=== PATIENT | female | born 1995 | race Caucasian/White ===

== ENCOUNTER 2016-11-18 13:19 | Emergency (ER) | payer OTHER ==
[~2016-11-18] VITALS: Wt 72.5 kg
[2016-11-18] MEDS ORDERED: SOD CHLORIDE 0.9% 1,000 ML IV STA (14:27)
[2016-11-18] MEDS ORDERED: FAMOTIDINE 20 MG INJ IV STA (14:27)
[2016-11-18] MEDS ORDERED: ONDANSETRON 4 MG INJ IV STA ×2 (14:27→15:48)
[2016-11-18] MEDS ORDERED: morphine 4 MG/ML VIAL IV STA ×2 (14:27→15:48)
--- NOTE | 2016-11-18 14:33 | ERD ---
ER Documentation Chief Complaint Date/Time DATE: 11/18/16 TIME: 14:29 Chief Complaint UPPER ABD PAIN SINCE TODAY. NO DYSURIA. NAUSEA NO VOMITING HPI 21 year old female with history of acute cholecystitis and cholecystectomy in 2013 presenting to the emergency department complaining of epigastric pain that radiates to her back since 11am this morning. Patient states pain was 6/10 but has increased to 9/10 2 hours ago. Patient complains of nausea and 1 episode of vomiting. Patient denies fever, diarrhea, dysuria. Patient states she has taken an Chaya medication called Sertal which is an NSAID, no relief. ROS All systems reviewed and are negative except as per history of present illness. Medications Home Meds Active Scripts Hydrocodone/Acetaminophen (Gilboa 5-325 Tablet) 1 Each Tablet, 1 TAB PO Q6H Y for PAIN, #20 TAB Prov:GUS MONET PA-C 11/18/16 Ondansetron (Ondansetron Odt) 4 Mg Tab.rapdis, 4 MG PO Q6H Y for NAUSEA AND/OR VOMITING, #10 TAB Prov:GUS MONET PA-C 11/18/16 Metronidazole* (Flagyl*) 500 Mg Tablet, 500 MG PO TID for 7 Days, TAB Prov:GUS MONET PA-C 11/18/16 Ciprofloxacin Hcl* (Ciprofloxacin Hcl*) 500 Mg Tablet, 500 MG PO BID for 7 Days , TAB Prov:GUS MONET PA-C 11/18/16 Allergies Allergies: Coded Allergies: No Known Drug Allergies (Verified Allergy, Unknown, 11/30/13) PMhx/Soc Medical and Surgical Hx: pt denies Medical Hx History of Surgery: No Hx Neurological Disorder: No Hx Respiratory Disorders: No Hx Cardiac Disorders: No Hx Psychiatric Problems: No Hx Miscellaneous Medical Probl: No Hx Alcohol Use: No Hx Substance Use: No Hx Tobacco Use: No Physical Exam Vitals Vital Signs Date Time Temp Pulse Resp B/P Pulse Ox O2 Delivery O2 Flow Rate FiO2 11/18/16 13:27 99.3 112 21 131/82 98 Physical Exam GENERAL: well-developed/well-nourished, in no apparent distress, non-toxic appearing HENT: NC/AT, moist mucous membranes EYES: Conjunctiva normal NECK: Supple, no lymphadenopathy PULM: CTA bilaterally, no rales, rhonchi, or wheezing heard CV: Normal S1S2, RRR, good capillary refill GI: Soft, non-distended, tender to palpation epigastric region, right and left upper quadrant Normal bowel sounds, no masses or organomegaly felt on exam No gross peritonitis, no bruits Negative Rovsing, negative Holcomb, negative McBurney's point, Negative CVAT BACK: No masses EXT: No clubbing, cyanosis, or edema NEURO: Alert and Orientated SKIN: Intact, normal turgor PSYCH: Normal mood and mentation Result Diagram: 11/18/16 1450 11/18/16 1450 Results 24 hrs Laboratory Tests Test 11/18/16 14:50 White Blood Count 16.710^3/ul Red Blood Count 4.8610^6/ul Hemoglobin 15.4g/dl Hematocrit 45.2% Mean Corpuscular Volume 93.0fl Mean Corpuscular Hemoglobin 31.7pg Mean Corpuscular Hemoglobin Concent 34.1g/dl Red Cell Distribution Width 12.0% Platelet Count 41612^3/UL Mean Platelet Volume 9.9fl Neutrophils % 91.3% Lymphocytes % 3.9% Monocytes % 4.0% Eosinophils % 0.4% Basophils % 0.1% Nucleated Red Blood Cells % 0.0/100WBC Neutrophils # 15.310^3/ul Lymphocytes # 0.710^3/ul Monocytes # 0.710^3/ul Eosinophils # 0.110^3/ul Basophils # 0.010^3/ul Nucleated Red Blood Cells # 0.010^3/ul Urine Color LT. YELLOW Urine Clarity HAZY Urine pH 5.5 Urine Specific Turner 1.025 Urine Ketones NEGATIVE Urine Nitrite NEGATIVE Urine Bilirubin NEGATIVE Urine Urobilinogen 0.2 E.U./dL Urine Leukocyte Esterase 1+ Urine Microscopic RBC 0-2/HPF Urine Microscopic WBC 5-10/HPF Urine Epithelial Cells MODERATE Urine Bacteria MODERATE Urine Mucus MANY Urine Hemoglobin NEGATIVE Urine Glucose NEGATIVE% Urine Total Protein NEGATIVE Sodium Level 141mmol/L Potassium Level 3.9mmol/L Chloride Level 101mmol/L Carbon Dioxide Level 26mmol/L Anion Gap 18 Blood Urea Nitrogen 21mg/dl Creatinine 0.80mg/dl Glucose Level 111mg/dl Calcium Level 9.7mg/dl Total Bilirubin 0.4mg/dl Direct Bilirubin 0.00mg/dl Indirect Bilirubin 0.4mg/dl Aspartate Amino Transf (AST/SGOT) 25IU/L Alanine Aminotransferase (ALT/SGPT) 31IU/L Alkaline Phosphatase 90IU/L Total Protein 9.3g/dl Albumin 5.3g/dl Globulin 4.00g/dl Albumin/Globulin Ratio 1.32 Lipase 90U/L Current Medications Medications (Trade) Dose Ordered Sig/Refugio Route PRN Reason Start Time Stop Time Status Last Admin Dose Admin Sodium Chloride (NS) 1,000 ml @ 1,000 mls/hr Q1H STAT IV 11/18/16 14:27 11/18/16 15:26 DC 11/18/16 14:50 Morphine Sulfate (morphine) 6 mg ONCE STAT IV 11/18/16 14:27 11/18/16 14:29 DC 11/18/16 14:49 Ondansetron HCl (Zofran Inj) 4 mg ONCE STAT IV 11/18/16 14:27 11/18/16 14:29 DC 11/18/16 14:49 Famotidine (Pepcid Iv) 20 mg ONCE STAT IV 11/18/16 14:27 11/18/16 14:29 DC 11/18/16 14:50 Morphine Sulfate (morphine) 4 mg ONCE STAT IV 11/18/16 15:48 11/18/16 15:51 DC 11/18/16 15:48 Ondansetron HCl 4 mg 4 mg ONCE STAT IV 11/18/16 15:48 11/18/16 15:51 DC 11/18/16 16:23 Ciprofloxacin/ Dextrose (Cipro Ivpb) 200 ml @ 200 mls/hr ONCE STAT IVPB 11/18/16 17:34 11/18/16 18:33 Metronidazole (Flagyl) 500 mg ONCE STAT PO 11/18/16 17:34 11/18/16 17:36 DC Procedures/MDM 21 year old female with history of acute cholecystitis and cholecystectomy in 2013 presenting to the emergency department complaining of epigastric pain that radiates to her back since 11am this morning Lab work was drawn. CBC did not show any evidence of anemia. Patient did have leukocytosis of 16.8. CMP did not show any evidence of renal, liver, or electrolyte abnormalities. Lipase was normal. UA did not showed evidence of leukocyte esterase, white blood cell count with moderate bacteria and epithelial cells. This may be contaminated but we will treat her empirically. In the ED, IV access was established. Patient was given 6 mg of morphine, Zofran and Pepcid. Patient felt better temporarily and then started having pain again. 4 mg of morphine was given to her. Patient was given1 L of fluids as well Gallbladder US : Status post cholecystectomy with a mildly dilated CBD measuring 7 mm. Pancreas not well seen. CT ABD & PELVIS Mild scattered colonic wall thickening can be seen with colitis in the appropriate clinical setting. No evidence of bowel obstruction. Normal-caliber appendix. No renal or ureteral stone. 2 mm left lower lobe subpleural nodule. Status post cholecystectomy. Bilateral pars interarticularis defects at L5. In the setting of normal transaminases and lipase with mild CBD dilation 7mm, there was no evidence of hepatic obstruction or cholecystitis. I have consulted my supervising physician who has helped me with this/ CT of the abdomen and pelvis was done and showed colitis, patient in the ED was treated empirically for bacterial sources Cipro IV and Flagyl. PO. Prescription for Cipro and Flagyl for 7 days was provided. Prescription for Zofran and Gilboa was also given. I discussed with patient to return to the ER for any worsening sinus symptoms. Patient appears stable for discharge. She understands and agrees with the plan Departure Diagnosis: Primary Impression: Colitis Condition: Stable GUS MONET PA-C Nov 18, 2016 14:33
[2016-11-18 14:57] LABS: ADD SCAN DIFF NO
[2016-11-18 15:03] LABS: BASOPHILS % 0.1 % (0.0-2.0); EOSINOPHILS # 0.1 10^3/ul (0.0-0.5); EOSINOPHILS % 0.4 % (0.0-7.0); HEMATOCRIT 45.2 % (37.0-47.0); HEMOGLOBIN 15.4 g/dl (12.0-16.0); LYMPHOCYTES # 0.7 10^3/ul (0.8-2.9); LYMPHOCYTES % 3.9 % (15.0-51.0); MEAN CORPUSCULAR HEMOGLOBIN 31.7 pg (29.0-33.0); MEAN CORPUSCULAR HGB CONC 34.1 g/dl (32.0-37.0); MEAN PLATELET VOLUME 9.9 fl (7.4-10.4); MONOCYTE # 0.7 10^3/ul (0.3-0.9); NEUTROPHIL # 15.3 10^3/ul (1.6-7.5); NEUTROPHILS % 91.3 % (39.0-77.0); PLATELET COUNT 292 10^3/UL (140-415); RED BLOOD COUNT 4.86 10^6/ul (4.20-5.40); WHITE BLOOD COUNT 16.7 10^3/ul (4.8-10.8)
[2016-11-18 15:06] LABS: ADD UMIC YES; URINE BILIRUBIN (Dip) NEGATIVE (NEGATIVE); URINE BLOOD (Dip) NEGATIVE (NEGATIVE); URINE COLOR LT. YELLOW (YELLOW); URINE GLUCOSE (Dip) NEGATIVE (NEGATIVE); URINE KETONES (Dip) NEGATIVE (NEGATIVE); URINE LEUKOCYTE ESTERASE (Dip) 1+ (NEGATIVE); URINE NITRITE (Dip) NEGATIVE (NEGATIVE); URINE TOTAL PROTEIN (Dip) NEGATIVE (NEGATIVE); URINE UROBILINOGEN (Dip) 0.2 E.U./dL (0.1-1.0)
[2016-11-18 15:11] LABS: ALBUMIN 5.3 g/dl (3.3-4.9); POTASSIUM 3.9 mmol/L (3.5-5.1)
[2016-11-18 15:13] LABS: CREATININE 0.8 mg/dl (0.44-1.00)
[2016-11-18 15:14] LABS: ALBUMIN/GLOBULIN RATIO 1.32; BILIRUBIN,INDIRECT 0.4 mg/dl (0-1.1); BILIRUBIN,TOTAL 0.4 mg/dl (0.2-1.3); CALCIUM 9.7 mg/dl (8.4-10.2); TOTAL PROTEIN 9.3 g/dl (6.1-8.1)
[2016-11-18 15:18] LABS: URINE RBCS 0-2 /HPF (0)
[2016-11-18 15:19] LABS: BACTERIA,URINE MODERATE; MUCUS,URINE MANY
--- NOTE | 2016-11-18 15:29 | RADRPT ---
PROCEDURE: US Abdomen. CLINICAL INDICATION: abdominal pain TECHNIQUE: Multiple real-time images were acquired of the patient's right upper quadrant abdomen a nd retroperitoneum utilizing a high resolution transducer. COMPARISON: 11/30/13 FINDINGS: The liver demonstrates normal echogenicity. The liver is normal in size and no focal solid lesions are seen. The liver measures 13.4 cm in length. The portal vein is patent with normal direction of f low. No intrahepatic biliary dilatation is seen. The patient is status post cholecystectomy. The common bile duct measures 7 mm in maximal dimension. The pancreas is not well seen. No free fluid is identified. The right kidney is normal in size, and demonstrate normal echogenicity and cortical thickness. The right kidney measures 9.6 cm in long dimension. There is no evidence of hydronephrosis. There are no kidney stones. RPTAT: AA IMPRESSION: Status post cholecystectomy with a mildly dilated CBD measuring 7 mm. Pancreas not well seen. .Dany Melo MD, Date Time Electronically viewed and signed by .Dany Melo MD, MD on 11/18/2016 15:29 .S/
--- NOTE | 2016-11-18 17:31 | RADRPT ---
PROCEDURE: CT Abdomen and Pelvis without contrast. CLINICAL INDICATION: Abdominal pain TECHNIQUE: CT scan of the abdomen and pelvis was performed on a multidetector high-resolution CT s canner without intravenous contrast. Coronal and sagittal reformatted images were obtained from the axial source images. Images were reviewed on a high-resolution PACS workstation. The total exam CTD I equals 19mGy and the total exam DLP equals 1168mGy-cm. One or more of the following dose reduction techniques were used: Automated exposure control, Adjustment of the mA and/or kV according to patie nt size, and/or use of iterative reconstruction technique. COMPARISON: None. FINDINGS: Evaluation of the solid organs is limited given the lack of intravenous contrast administration. 2 mm left lower lobe subpleural nodule. The liver, pancreas, spleen, and adrenals are grossly unremarkable. Status post cholecystectomy. No evidence of biliary dilatation. No hydronephrosis. No renal or ureteral stone. Mild scattered colonic wall thickening. No bowel obstruction. Normal-caliber appendix. No significant retroperitoneal lymphadenopathy, ascites or evidence of pneumoperitoneum. Bilateral pars interarticularis defects at L5. IMPRESSION: Mild scattered colonic wall thickening can be seen with colitis in the appropriate clinical setting. No evidence of bowel obstruction. Normal-caliber appendix. No renal or ureteral stone. 2 mm left lower lobe subpleural nodule. Status post cholecystectomy. Bilateral pars interarticularis defects at L5. RPTAT: AA .Srinivasa Estrada MD, MD Date Time Electronically viewed and signed by .Srinivasa Estrada MD, MD on 11/18/2016 17:30 .T/
[2016-11-18] MEDS ORDERED: metroNIDAZOLE 500 MG TAB PO STA (17:34)
[2016-11-18] MEDS ORDERED: CIPROFLOXACIN 400MG/D5W 200 ML IVPB STA (17:34)
[2016-11-18] MEDS ORDERED: HYDR-906 PO (17:36)
[2016-11-18] MEDS ORDERED: ONDA4TAB14 PO (17:36)
[2016-11-18] MEDS ORDERED: CIPR500T4 PO (17:36)
[2016-11-18] MEDS ORDERED: METR500T PO (17:36)
[2016-11-18] MEDS ORDERED: METOCLOPRAMIDE 10 MG INJ IV STA (18:19)
[2016-11-18] MEDS ORDERED: morphine 10 MG INJ IV STA (18:20)
[2016-11-18 19:44] VITALS: BP 114/67; PULSE 100; RESP 20; TEMP 99
== END 2016-11-18 19:40 | disposition home or self-care (01) ==
LOC: FTE 13:19
DX: K52.9 Noninfective gastroenteritis and colitis, unspecified (principal); R11.0 Nausea
CPT/HCPCS: 36415; 74176; 76705; 80053; 81001; 83690; 85025; 96374; 96375; 96376; J0744; J2270; J2405; J2765; J7030; Z7502; Z7610; 81003